=== PATIENT | female | born 1945 | race Caucasian/White ===

== ENCOUNTER → 2020-09-11 | Outpatient (CLI) | payer OTHER, MEDICARE | LOC: RAD 11:02 | PROVIDERS: ATTEND Family Medicine | DX: M51.16 Intervertebral disc disorders with radiculopathy, lumbar region (principal); M85.88 Other specified disorders of bone density and structure, other site; M47.27 Other spondylosis with radiculopathy, lumbosacral region; M85.851 Other specified disorders of bone density and structure, right thigh; M16.12 Unilateral primary osteoarthritis, left hip ==